=== PATIENT | female | born 1945 ===

== ENCOUNTER 2021-04-13 05:45 | Day surgery (SDC) | payer OTHER | END 2021-04-13 10:05 | disposition home or self-care (01) | LOC: AMB-ENDOS 05:45 | PROVIDERS: ATTEND Surgery | DX: K63.5 Polyp of colon (principal); K64.8 Other hemorrhoids; Z20.822 Contact with and (suspected) exposure to COVID-19; Z12.11 Encounter for screening for malignant neoplasm of colon ==

== ENCOUNTER 2021-05-09 10:00 | Inpatient (IN) | payer OTHER ==
[~2021-05-09] VITALS: Ht 162.6 cm; Wt 57.6 kg
[2021-05-09] MEDS ORDERED: PAXIL20 MG PO (13:08)
[2021-05-09] MEDS ORDERED: COZAAR50 MG PO (13:08)
[2021-05-09] MEDS ORDERED: SYMBICORT 16010.2 GM IH (13:09)
[2021-05-13] MEDS ORDERED: PAIN RELIEVER500 M5 (08:40)
[2021-05-13] MEDS ORDERED: FLONASE16 GM (08:40)
[2021-05-13] MEDS ORDERED: OMEPRAZOLE20 MG (08:40)
[2021-05-13] MEDS ORDERED: METRONIDAZOLE500 MG (08:40)
[2021-05-13] MEDS ORDERED: PRAVASTATIN SOD40 MG (08:40)
[2021-05-13] MEDS ORDERED: METFORMIN HCL500 M4 (08:40)
[2021-05-16] MEDS ORDERED: PERCOCET 5-3251 EACH PO (16:29)
[2021-05-16] MEDS ORDERED: LEVOFLOXACIN750 MG PO (16:30)
== END 2021-05-16 17:58 | disposition home or self-care (01) | DRG 330 ==
LOC: O/R 05-13 05:30 → SURH 05-13 05:30
PROVIDERS: ADMIT Surgery; ATTEND Surgery
PROC: 0DTP4ZZ Resection of Rectum, Percutaneous Endoscopic Approach (ICD-10-PCS; 2021-05-13)
PROC: 0DJD8ZZ Inspection of Lower Intestinal Tract, Via Natural or Artificial Opening Endoscopic (ICD-10-PCS; 2021-05-13)
PROC: 3E0F7GC Introduction of Other Therapeutic Substance into Respiratory Tract, Via Natural or Artificial Opening (ICD-10-PCS; 2021-05-13)
PROC: 3E0F7SF Introduction of Other Gas into Respiratory Tract, Via Natural or Artificial Opening (ICD-10-PCS; 2021-05-13)
PROC: 0DBN4ZZ Excision of Sigmoid Colon, Percutaneous Endoscopic Approach (ICD-10-PCS; principal; 2021-05-13 10:30)
DX: K57.20 Diverticulitis of large intestine with perforation and abscess without bleeding (principal); N82.3 Fistula of vagina to large intestine; F32.9 Major depressive disorder, single episode, unspecified